=== PATIENT | female | born 1995 | race Caucasian/White ===

== ENCOUNTER 2020-10-10 | Outpatient (REF) | payer OTHER, MEDICAID, SELFPAY ==
[2020-10-11 15:05] LABS: CT PCR NOT DETECTED (Not Detect.); NG PCR NOT DETECTED (Not Detect.)
[2020-10-12 09:13] LABS: BV Int Neg Control Negative (Negative); BV Int Pos Control Positive (Positive)
== END 2020-10-10 00:01 | disposition home or self-care (01) ==
LOC: HO.LNP
PROVIDERS: Visit Provider Nurse Practitioner Family
DX: Z11.3 Encounter for screening for infections with a predominantly sexual mode of transmission (principal)
CPT/HCPCS: 87480; 87491; 87510; 87591; 87660

== ENCOUNTER 2020-10-11 12:55 | Outpatient (REF) | payer OTHER, SELFPAY | END 2020-10-11 12:56 | disposition home or self-care (01) | LOC: HO.LNP 12:55 | PROVIDERS: Visit Provider Nurse Practitioner Family | DX: Z13.89 Encounter for screening for other disorder (principal) ==

== ENCOUNTER 2020-10-16 11:25 | Outpatient (REF) | payer OTHER, MEDICAID, SELFPAY | END 2020-10-16 11:26 | disposition home or self-care (01) | LOC: HO.LNP 11:25 | PROVIDERS: Visit Provider Nurse Practitioner Family | DX: N39.0 Urinary tract infection, site not specified (principal) | CPT/HCPCS: 87086 ==

== ENCOUNTER 2021-03-29 09:05 | Outpatient (REF) | payer OTHER, MEDICAID, SELFPAY ==
[2021-03-29 11:31] LABS: MANUAL DIFF FLAG NO
[2021-03-29 11:38] LABS: Basophils Percent Auto 0.6 % (0-2); Eosinophils Absolute Auto 0.3 X10*3/uL (0.0-0.4); Hematocrit 38.9 % (37-47); Hemoglobin 13.5 g/dl (12.0-16.0); Imm Gran Abs Auto 0.01 X10*3/uL (0.00-0.03); Imm Gran Pct Auto 0.2 % (0.0-0.4); Lymphocytes Absolute Auto 2.3 X10*3/uL (1.2-4.9); Lymphocytes Percent Auto 46.5 % (20-40); Mean Corpuscular HGB Conc 34.7 g/dl (31.0-35.0); Mean Corpuscular Hemoglobin 29.7 pg (27.0-33.0); Mean Corpuscular Volume 85.7 fL (80-98); Mean Platelet Volume 9.9 fL (9.4-12.3); Monocytes Absolute Auto 0.5 X10*3/uL (0.1-1.2); Monocytes Percent Auto 9.1 % (2-11); Neutrophils Absolute Auto 1.9 X10*3/uL (2.0-8.3); Neutrophils Percent Auto 37.6 % (45-73); Platelet Count 263 X10*3/uL (160-400); Red Blood Count 4.54 X10*6/uL (4.20-5.50)
[2021-03-29 12:19] LABS: Alanine Aminotransferase 11 U/L (0-31); Albumin Level 4.2 g/dL (3.5-5.0); Alkaline Phosphatase 52 U/L (39-117); Anion Gap 12 (12-20); Aspartate Amino Transferase 15 U/L (5-31); Bilirubin Total 0.3 mg/dL (0.0-1.0); Blood Urea Nitrogen 11 mg/dL (9-16); Calcium 9.8 mg/dL (8.4-10.2); Carbon Dioxide 26 mmol/L (22-29); Chloride 105 mmol/L (96-108); Cholesterol 161 mg/dL; Estimated Glomerular Filt Rate > 60; Glucose Fasting 90 mg/dL (60-99); HDL Cholesterol 48 mg/dL; LDL Cholesterol Calculated 92 mg/dl; Potassium 4.5 mmol/L (3.3-5.1); Sodium 138 mmol/L (135-145); Total Protein 7.3 g/dL (6.5-8.0); Triglycerides 106 mg/dL
[2021-03-29 12:21] LABS: TSH reflex Free T4 0.94 uIU/mL (0.32-4.0)
== END 2021-03-29 09:06 | disposition home or self-care (01) ==
LOC: HO.HMGCLDS 09:05
PROVIDERS: PCP Internal Medicine; Visit Provider Internal Medicine
DX: E78.9 Disorder of lipoprotein metabolism, unspecified (principal); R41.840 Attention and concentration deficit; R53.83 Other fatigue; Z83.49 Family history of other endocrine, nutritional and metabolic diseases
CPT/HCPCS: 36415; 80053; 80061; 84443; 85025

== ENCOUNTER 2021-07-09 13:11 | Outpatient (REF) | payer OTHER, MEDICAID, SELFPAY ==
[2021-07-11 19:31] LABS: TS Negative Control Passed; TS Panel A 0; TS Panel B 0; TS Positive Control Passed; TSpotTB Negative (Negative)
== END 2021-07-09 13:12 | disposition home or self-care (01) ==
LOC: HO.HMGCLDS 13:11
PROVIDERS: PCP Internal Medicine; Visit Provider Internal Medicine
DX: Z11.1 Encounter for screening for respiratory tuberculosis (principal)
CPT/HCPCS: 36415; 86481

== ENCOUNTER 2021-10-03 10:15 | Outpatient (REF) | payer OTHER, MEDICAID, SELFPAY ==
[2021-10-04 00:44] LABS: CT PCR NOT DETECTED (Not Detect.); NG PCR NOT DETECTED (Not Detect.)
== END 2021-10-03 10:16 | disposition home or self-care (01) ==
LOC: HO.LAB 10:15
PROVIDERS: PCP Internal Medicine; Visit Provider Advanced Practice Midwife
DX: Z01.419 Encounter for gynecological examination (general) (routine) without abnormal findings (principal); Z20.2 Contact with and (suspected) exposure to infections with a predominantly sexual mode of transmission; R55 Syncope and collapse
CPT/HCPCS: 87491; 87591; 88142

== ENCOUNTER 2022-12-03 13:29 | Outpatient (REF) | payer OTHER, SELFPAY ==
[2022-12-03 14:51] LABS: HCG Quantitative 27 mIU/mL
== END 2022-12-03 13:30 | disposition home or self-care (01) ==
LOC: HO.HMGCLDS 13:29
PROVIDERS: PCP Internal Medicine; Visit Provider Internal Medicine
DX: N92.6 Irregular menstruation, unspecified (principal)
CPT/HCPCS: 36415; 84702

== ENCOUNTER 2023-01-02 07:13 | Outpatient (REF) | payer OTHER, SELFPAY ==
[2023-01-02 11:39] LABS: MANUAL DIFF FLAG NO
[2023-01-02 12:03] LABS: Basophils Percent Auto 0.6 % (0-2); Eosinophils Absolute Auto 0.2 X10*3/uL (0.0-0.4); Eosinophils Percent Auto 4.6 % (0-4); Hematocrit 36.9 % (37.0-47.0); Hemoglobin 12.2 g/dl (12.0-16.0); Imm Gran Abs Auto 0.01 X10*3/uL (0.00-0.03); Imm Gran Pct Auto 0.2 % (0.0-0.4); Lymphocytes Absolute Auto 1.6 X10*3/uL (1.2-4.9); Lymphocytes Percent Auto 32.7 % (20-40); Mean Corpuscular HGB Conc 33.1 g/dl (31.0-35.0); Mean Corpuscular Hemoglobin 29.4 pg (27.0-33.0); Mean Corpuscular Volume 88.9 fL (80.0-98.0); Mean Platelet Volume 9.4 fL (9.4-12.3); Monocytes Absolute Auto 0.5 X10*3/uL (0.1-1.2); Monocytes Percent Auto 11.2 % (2-11); Neutrophils Absolute Auto 2.5 x10*3/uL (2.0-8.3); Neutrophils Percent Auto 50.7 % (45-73); Platelet Count 256 X10*3/uL (160-400); Red Blood Count 4.15 X10*6/uL (4.20-5.50); Red Cell Distribution Width 12.4 % (11.0-16.0); White Blood Count 4.8 X10*3/uL (4.8-10.8)
[2023-01-02 12:20] LABS: Alanine Aminotransferase 23 U/L (0-31); Albumin Level 4.2 g/dL (3.5-5.0); Alkaline Phosphatase 59 U/L (39-117); Anion Gap 9 (12-20); Aspartate Amino Transferase 19 U/L (5-31); Bilirubin Total 0.3 mg/dL (0.0-1.0); Blood Urea Nitrogen 10 mg/dL (9-16); Carbon Dioxide 27 mmol/L (22-29); Chloride 105 mmol/L (96-108); Cholesterol 148 mg/dL; Estimated Glomerular Filt Rate > 60; Glucose Fasting 96 mg/dL (60-99); HDL Cholesterol 50 mg/dL; LDL Cholesterol Calculated 86 mg/dl; Potassium 4.2 mmol/L (3.3-5.1); Sodium 137 mmol/L (135-145); Total Protein 6.7 g/dL (6.5-8.0); Triglycerides 60 mg/dL
[2023-01-02 12:44] LABS: HCG Quantitative 2733 mIU/mL; TSH reflex Free T4 1.51 uIU/mL (0.32-4.0)
== END 2023-01-02 07:14 | disposition home or self-care (01) ==
LOC: HO.HMGCLDS 07:13
PROVIDERS: PCP Internal Medicine; Visit Provider Internal Medicine
DX: Z00.01 Encounter for general adult medical examination with abnormal findings (principal); E78.9 Disorder of lipoprotein metabolism, unspecified; F42.9 Obsessive-compulsive disorder, unspecified; T78.40XA Allergy, unspecified, initial encounter; N92.6 Irregular menstruation, unspecified; Z83.49 Family history of other endocrine, nutritional and metabolic diseases
CPT/HCPCS: 36415; 80053; 80061; 84443; 84702; 85025

== ENCOUNTER 2023-10-09 14:25 | Outpatient (AMB) | payer OTHER, SELFPAY ==
--- NOTE | 2023-10-09 14:29 | AM.OFFWIN_ITS ---
Intake Vital Signs 10/09/23 14:30 Height 5 ft 2 in Weight 160 lb 8 oz BMI 29.4 BP 110/70 Blood Pressure Location Rt brachial Position Sitting Pulse 96 Pulse Source Pulse Oximeter Pulse Oximetry (%) 98 Oxygen Delivery Method Room Air Intake Visit Reasons: EST/spot on stomach(lobby) Intake Note: Pt is here requesting control until she is able to receive a referral to OBGYN. Pt has PCP appointment on 11/03/23. Pt also has c/o red spot located on her stomach that may have been from tanning. Patient Tobacco Use Status: Never used Tobacco Allergies seasonal allergies/pollen Allergy (Unknown, Uncoded 10/09/23 14:33) Unknown HPI HPI Comments History of Present Illness Details 28 y/o female who presents to walk in [facility] for contraception. She is sexually active with a new partner, no condoms. LMP: 09/18 - 09/22, regular. Last unprotected intercourse 09/23/2023. She was previously on Stacie 3 years ago, with no problems. Denies any h/o heart, liver, kidney disease. Denies any [employer] [place] cancers. Denies h/o headaches with Aura. [facility] Medical History Allergies Anxiety Lipid disorder Migraine headache without aura Vasovagal reaction Vasovagal syncope Surgical History History of tonsillectomy History of tooth extraction Family History Father No problems noted. Mother No problems noted. Maternal Grandmother No problems noted. Maternal Grandfather History of heart attack Paternal Grandfather No problems noted. Paternal Grandmother No problems noted. Brother No problems noted. Sister No problems noted. 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 Sexual orientation: Straight/Heterosexual Gender identity: Female Cognitive needs: No Hearing needs: No Vision needs: No Review of Systems Const All systems reviewed & are unremarkable except as noted in HPI and below Physical Exam Vital Signs: Last Vital Signs Pulse 96 10/09/23 14:30 BP 110/70 10/09/23 14:30 Pulse Ox 98 10/09/23 14:30 Oxygen Delivery Method Room Air 10/09/23 14:30 BMI result Body Mass Index 29.4 Const General: comfortable Orientation/consciousness: patient oriented x3 Resp Effort & Inspection: normal respiratory effort Auscultation: clear to auscultation bilaterally Cardio Rate: regular rate Rhythm: regular rhythm Neuro General: patient oriented x3 Psych Appearance: grossly normal Mental Status: mental status grossly normal Speech and movement: Clear speech present Affect: normal affect Attitude: cooperative Thought process: Normal thought process present Results AMB Test Urine AMB Test Urine Negative Last Edit by Bree King CMA on 10/09 15:13 Results Reviewed Results Reviewed: Laboratory Last Values [facility]st Clinic Negative 10/09/23 15:11 Assessment & Plan Assessment & Plan (1) control counseling: Code(s): Z30.09 - Encounter for other general counseling and advice on contraception Plan: - Extensive consel provided - Educated on redflags signs and common side effects - Provided information on start - POC HCG Urine today (negative) - Will start Stacie today; advised her to skip placebo pills to avoid Estrogen drop. - She will need to f/u with PCP for refills. Plan No contraindications at this time. Orders: Orders AMB HCG Urine Test Today Z32.02 - Encounter for test, result negative Medications: New drospirenone-ethinyl estradiol 3-0.03 mg (Stacie (28)) Day 1 start: Dose starts on first day of menstrual cycle. An additional method of contraception is not required. Quick start: Start on the day the patient receives the prescription. Use an additional method of contraception until 7 days of consecutive administration. 1 tab PO DAILY 84 tabs 0RF Z30.09 - Encounter for other general counseling and advice on contraception Coding Level of Care Code Est Pt Level 3 (02099) Diagnoses control counseling Z30.09 Time Spent (min) 15
[2023-10-09 14:30] VITALS: BP 110/70; PULSE 96; O2SAT 98; BMI 29.4
== END 2023-10-09 16:12 | disposition home or self-care (01) ==
PROVIDERS: PCP Internal Medicine; Visit Provider Nurse Practitioner Family
DX: Z30.09 Encounter for other general counseling and advice on contraception (principal); Z32.02 Encounter for pregnancy test, result negative
CPT/HCPCS: 81025; 99213

== ENCOUNTER 2024-02-23 11:03 | Outpatient (AMB) | payer OTHER, SELFPAY ==
[2024-02-23 11:06] VITALS: BP 140/78; PULSE 112; TEMP 36.6; O2SAT 98
--- NOTE | 2024-02-23 11:06 | MHC.PC.OV ---
Vital Signs 02/23/24 11:06 Height 5 ft 2 in Weight 164 lb BMI 30.0 BP 140/78 H Blood Pressure Location Rt brachial Position Sitting Pulse 112 H Pulse Source Pulse Oximeter Temp 97.9 F Temp Source Oral Pulse Oximetry (%) 98 Oxygen Delivery Method Room Air Intake Visit Reasons: Annual PE Allergies seasonal allergies/pollen Allergy (Unknown, Uncoded 10/09/23 14:33) Unknown Medication List - Last Reconciled 02/23/24 by Steph Treviño MD atorvastatin (Lipitor) 10 mg PO DAILY 90 days drospirenone-ethinyl estradiol 3-0.03 mg (Stacie (28)) 1 tab PO DAILY escitalopram oxalate (Lexapro) 10 mg PO DAILY 90 days meclizine 25 mg PO BID-TID PRN 7 days ondansetron HCl 4 mg PO Q8H PRN 7 days Tobacco use date assessed: 02/23/24 Dental Screening Dental Screen Date: 02/23/24 Did you have a dental visit in the last 12 months?: Yes Did you have a dental problem in the last 6 months where you did not have access to dental care?: No Was dental information given to patient?: Patient has dentist HPI Annual PE HPI Details Patient is 29-year-old female came in today for sick visit She was originally scheduled for physical examination which we need to cancel, we gave her a new appointment for of this month for physical exam She is feeling sick since yesterday with sore throat which has gotten worse this morning Patient is having difficulty swallowing because of pain Feeling tired On examination she has pharyngitis with tonsillar erythema both sides We have taken strep test as well as COVID test Meanwhile I have sent amoxicillin for her to be started Patient was also instructed to package pick up Chloraseptic throat spray which will help with the pain She may also take ibuprofen or Tylenol. Push fluids Further management after the reports [facility] Medical History Vasovagal syncope Anxiety Vasovagal reaction Migraine headache without aura Allergies Lipid disorder Surgical History History of tooth extraction History of tonsillectomy Family History Father No problems noted. Mother No problems noted. Maternal Grandmother No problems noted. Maternal Grandfather History of heart attack Paternal Grandfather No problems noted. Paternal Grandmother No problems noted. Brother No problems noted. Sister No problems noted. 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 Lebron Beltran, Rupali Gonzalez, Oscar Dean and colleagues, with an educational daily from [employer]. Review of Systems Const Denies chills and Denies fever(s) ENT Denies epistaxis Card Denies chest pain Resp Denies chest congestion, Denies cough and Denies hemoptysis GI Denies diarrhea and Denies nausea Skin/Breast Denies rash Neuro Reports no additional complaints Psych Reports no additional complaints Endo Reports no additional complaints Physical exam (Primary Care) Vital Signs: Last Vital Signs Temp 97.9 F 02/23/24 11:06 Pulse 112 H 02/23/24 11:06 BP 140/78 H 02/23/24 11:06 Pulse Ox 98 02/23/24 11:06 Oxygen Delivery Method Room Air 02/23/24 11:06 BMI result Body Mass Index 30.0 Tobacco/Smoking Status: Tobacco use Status Tobacco use date assessed 02/23/24 02/23/24 11:08 Patient Tobacco Use Status Never used Tobacco 02/23/24 11:08 e-Cigarette/Vaping Use Never Used 02/23/24 11:08 Thrive Assessment: Date of Thrive Assessment Date Thrive assessed 10/28/22 02/23/24 11:08 Const General: cooperative, comfortable and no acute distress Orientation/consciousness: patient oriented x3 HENMT Head: Yes normocephalic Eyes General: appearance normal, both eyes and all related structures Neck Neck: Yes supple Resp Effort & Inspection: normal respiratory effort, no cough and no stridor Skin General skin exam: turgor normal Neuro General: patient oriented x3, tone normal and moves all extremities Extrem Right lower extremity: no edema Left lower extremity: no edema Assessment and Plan Assessment & Plan (1) Throat pain in adult: Code(s): R07.0 - Pain in throat (2) Difficulty swallowing: Code(s): R13.10 - Dysphagia, unspecified Qualifiers: Dysphagia type: oral phase Qualified Code(s): R13.11 - Dysphagia, oral phase (3) Nasal discharge: Code(s): J34.89 - Other specified disorders of nose and nasal sinuses (4) Feeling sick: Code(s): R68.89 - Other general symptoms and signs Plan Patient is 29-year-old female came in today for sick visit She was originally scheduled for physical examination which we need to cancel, we gave her a new appointment for of this month for physical exam She is feeling sick since yesterday with sore throat which has gotten worse this morning Patient is having difficulty swallowing because of pain Feeling tired On examination she has pharyngitis with tonsillar erythema both sides We have taken strep test as well as COVID test Meanwhile I have sent amoxicillin for her to be started Patient was also instructed to package pick up Chloraseptic throat spray which will help with the pain She may also take ibuprofen or Tylenol. Push fluids Further management after the reports Orders: Orders SARS-CoV2/FLU/RSV Today R09.89 - Other specified symptoms and signs involving the circulatory and respiratory systems Medications: New amoxicillin 875 mg PO BID 14 tabs 0RF 7 days Coding Level of Care Code Est Pt Level 3 (48670) Diagnoses Throat pain in adult R07.0 Oral phase dysphagia R13.11 Dysphagia type: oral phase Nasal discharge J34.89 Feeling sick R68.89
== END 2024-02-23 12:47 | disposition home or self-care (01) ==
PROVIDERS: PCP Internal Medicine; Visit Provider Internal Medicine
DX: R07.0 Pain in throat (principal); R13.11 Dysphagia, oral phase; J34.89 Other specified disorders of nose and nasal sinuses; R68.89 Other general symptoms and signs
CPT/HCPCS: 87880; 99213

== ENCOUNTER 2024-02-23 13:03 | Outpatient (REF) | payer OTHER, SELFPAY ==
[2024-02-23 14:08] LABS: Influenza A PCR NEGATIVE (Negative); Influenza B PCR NEGATIVE (Negative); Resp Syncy Virus RNA Qual PCR NEGATIVE (Negative); SARS COV2 PCR INHOUSE NEGATIVE (Negative)
== END 2024-02-23 13:04 | disposition home or self-care (01) ==
LOC: HO.LNP 13:03
PROVIDERS: Visit Provider Internal Medicine
DX: R09.89 Other specified symptoms and signs involving the circulatory and respiratory systems (principal)
CPT/HCPCS: 0241U

== ENCOUNTER 2024-03-04 07:57 | Outpatient (AMB) | payer OTHER, SELFPAY ==
[2024-03-04 08:03] VITALS: BP 128/82; PULSE 95; O2SAT 97; BMI 30.2
--- NOTE | 2024-03-04 08:03 | A.OFFPC_ITS ---
Vital Signs 3 03/04/24 08:03 Height 5 ft 2 in Weight 165 lb BMI 30.2 BP 128/82 Blood Pressure Location Rt brachial Position Sitting Pulse 95 Pulse Source Pulse Oximeter Pulse Oximetry (%) 97 Oxygen Delivery Method Room Air Intake Visit Reasons: Annual PE Allergies seasonal allergies/pollen Allergy (Unknown, Uncoded 03/04/24 08:03) Unknown Medication List - Last Reconciled 03/04/24 by Steph Treviño MD atorvastatin (Lipitor) 10 mg PO DAILY 90 days escitalopram oxalate (Lexapro) 10 mg PO DAILY 90 days meclizine 25 mg PO BID-TID PRN 7 days ondansetron HCl 4 mg PO Q8H PRN 7 days Tobacco use date assessed: 03/04/24 Dental Screening Dental Screen Date: 02/23/24 Did you have a dental visit in the last 12 months?: Yes Did you have a dental problem in the last 6 months where you did not have access to dental care?: No Was dental information given to patient?: Patient has dentist HPI Annual PE 2 HPI0 Details Patient is 29-year-old female came in today for physical exam Patient does not want to see OBGYN Last time she went to OBGYN she passed out while having Pap smear. Patient suffers from anxiety/OCD, currently taking Lexapro only as needed, instructed patient to start taking it daily. Lipid disorder: Continue atorvastatin, due for labs Patient would also like to have referral to Dermatology for cyst on her scalp and right abdomen. She will return in 6 months for follow-up on anxiety and lipids And 1 year for physical exam BMI is elevated need to lose weight PFSH Medical History Vasovagal syncope Anxiety Vasovagal reaction Migraine headache without aura Allergies Lipid disorder Surgical History History of tooth extraction History of tonsillectomy Family History Father No problems noted. Mother No problems noted. Maternal Grandmother No problems noted. Maternal Grandfather History of heart attack Paternal Grandfather No problems noted. Paternal Grandmother No problems noted. Brother No problems noted. Sister No problems noted. 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 1. Little interest or pleasure in doing things: not at all 2. Feeling down, depressed, or hopeless: not at all 3. Trouble falling or staying asleep, or sleeping too much: not at all 4. Feeling tired or having little energy: not at all 5. Poor appetite or overeating: not at all 6. Feeling bad about yourself - or that you are a failure or have let yourself or your family down: not at all 7. Trouble concentrating on things, such as reading the newspaper or watching television: not at all 8. Moving or speaking so slowly that other people could have noticed. Or the opposite - being so fidgety or restless that you have been moving around a lot more than usual: not at all 9. Thoughts that you would be better off or of hurting yourself in some way: not at all Total score: 0 Depression Screening Interpretation: Negative Depression Screening Done: Yes 85912 - PHQ-9 Billing: Yes Source: Developed by Drs. Lebron Beltran, Rupali Gonzalez, Oscar Dean and colleagues, with an educational daily from [employer]. Thrive Questionnaire Date Thrive assessed: 03/04/24 I am a: Patient What is your living situation today?: I have a steady place to live Within the past 12 months, did the food you bought not last and you didn't have the money to get more?: Never true Within the past 12 months, did you worry whether your food would run out before you got money to buy more?: Never true Do you have trouble paying for medicines?: No Do you have trouble getting transportation to medical appointments?: No Do you have trouble paying your heating and electricity bill?: No Do you have trouble taking care of your child, family member or friend?: No Do you have trouble with day-to-day activities such as bathing, preparing meals, shopping, managing finances, etc.?: No Are you currently unemployed and looking for a job?: No Are you interested in more education?: No THRIVE Score: 0 AUDIT C Alcohol Use Questionnaire (AUDIT-C) 1. How often do you have a drink containing alcohol?: Monthly or less 2. How many drinks containing alcohol do you have on a typical day when you are drinking?: 1 or 2 3. How often do you have six or more drinks on one occasion?: Never Total Score: 1 ROSALIA-7 AMB Questionnaire ROSALIA-7 Date ROSALIA - 7 assessed: 03/04/24 Feeling nervous, anxious, or on edge: 0 = Not at all Not being able to stop or control worryin = Not at all Worrying too much about different things: 1 = Several days Trouble relaxin = Several days Being so restless that it is hard to sit still: 0 = Not at all Becoming easily annoyed or irritable: 0 = Not at all Feeling afraid as if something awful might happen: 0 = Not at all Total ROSALIA-7 score (0-4 normal; 5-9 mild; 10-14 moderate; 15-21 severe): 2 Source: Developed by Drs. Lebron Beltran, Rupali Gonzalez, Oscar Dean and colleagues, with an educational daily from [employer]. Review of Systems Const Denies chills, Denies fever(s) and Denies headache(s) Eyes Denies blurry vision ENT Denies headache(s), Denies nasal discharge, Denies nasal obstruction, Denies odynophagia and Denies sinus pain Card Denies chest pain at rest and Denies chest pain with activity Resp Denies cough and Denies hemoptysis GI Denies diarrhea, Denies odynophagia, Denies vomiting and Denies hematemesis Reports as per HPI Musc Denies abnormal gait Skin/Breast Reports as per HPI Neuro Denies Neuro-related abnormal movements, Denies Abnormal speech present, Denies abnormal gait, Denies headache(s) and Denies Sensory deficit (Neuro) Psych Denies mood swings and Denies paranoia Endo Reports as per HPI Eliseo/Lymph Reports as per HPI Aller/Immun Reports as per HPI Physical exam (Primary Care) Vital Signs: Last Vital Signs Pulse 95 03/04/24 08:03 BP 128/82 03/04/24 08:03 Pulse Ox 97 03/04/24 08:03 Oxygen Delivery Method Room Air 03/04/24 08:03 BMI result Body Mass Index 30.2 Tobacco/Smoking Status: Tobacco use Status Tobacco use date assessed 03/04/24 03/04/24 08:07 Patient Tobacco Use Status Never used Tobacco 03/04/24 08:07 e-Cigarette/Vaping Use Never Used 03/04/24 08:07 PHQ-9: PHQ-9 Score PHQ-9: Total score 0 03/04/24 08:42 Depression Screening Interpretation: Negative Thrive Assessment: Date of Thrive Assessment Date Thrive assessed 03/04/24 03/04/24 08:09 Const General: cooperative, comfortable and no acute distress Orientation/consciousness: patient oriented x3 HENMT Head: Yes normocephalic and Yes atraumatic Head images: 2 1. Pea size small firm cyst Eyes General: appearance normal, both eyes and all related structures Pupils: Equal, round and reactive pupils present EOM: EOMs intact bilaterally Neck Neck: Yes supple and No lymphadenopathy Thyroid: Thyroid normal Lymphatic: no lymphadenopathy noted Resp Effort & Inspection: normal respiratory effort and able to speak in complete sentences Auscultation: clear to auscultation bilaterally Cardio Heart sounds: S1 normal heart sound present and S2 normal heart sound present GI Palpation (GI): Soft to palpation and nontender Auscultation: normal bowel sounds General: Yes no CVA tenderness Back/Spine/Pelvis Back: no CVA tenderness Skin General skin exam: elasticity normal and turgor normal Full body images: 2 1. pea size small fibroma Neuro General: patient oriented x3 and gait normal Cranial nerves: Yes Equal, round and reactive pupils present Speech: No Abnormal speech present Sensory Exam: No Sensory deficit (Neuro) Coordination: tandem gait normal and Romberg test negative Extrem General: Yes normal exam except as noted and No edema Immunizations Boostrix Tdap 2.5 Lf unit-8 mcg-5 Lf/0.5 mL intramuscular syringe Performing Provider: Steph Treviño MD Performing Location: [facility] Administered by: SHELLI Parra on 03/04/24 08:27 2 Dose Route Admin Location Dispensed Lot Number Expiration Date NDC Hydrologic Modeler 0.5 mL IM Right Deltoid 0.5 mL [id number] 03/09/26 [id number] [employer] 2 VIS Given Date VIS Provided VIS Publication Date 03/04/24 Single Vaccine 21 Eligibility Eligibility Date Funding Source Not [facility] Eligible 03/04/24 Private Assessment and Plan Assessment & Plan (1) Encounter for general adult medical examination with abnormal findings: Code(s): Z00.01 - Encounter for general adult medical examination with abnormal findings (2) Lipid disorder: Code(s): E78.9 - Disorder of lipoprotein metabolism, unspecified (3) OCD (obsessive compulsive disorder): Code(s): F42.9 - Obsessive-compulsive disorder, unspecified Qualifiers: Obsessive-compulsive disorder type: unspecified Qualified Code(s): F 42.9 - Obsessive-compulsive disorder, unspecified (4) Anxiety disorder: Code(s): F41.9 - Anxiety disorder, unspecified Qualifiers: Anxiety disorder type: generalized anxiety disorder Qualified Code(s): F41.1 - Generalized anxiety disorder (5) Abnormal skin growth: Code(s): D49.2 - Neoplasm of unspecified behavior of bone, soft tissue, and skin Plan Patient is 29-year-old female came in today for physical exam Patient does not want to see OBGYN Last time she went to OBGYN she passed out while having Pap smear. Patient suffers from anxiety/OCD, currently taking Lexapro only as needed, instructed patient to start taking it daily. Lipid disorder: Continue atorvastatin, due for labs Patient would also like to have referral to Dermatology for cyst on her scalp and right abdomen. She will return in 6 months for follow-up on anxiety and lipids And 1 year for physical exam BMI is elevated need to lose weight Orders: Orders 2 Lipid Panel Today E78.9 - Disorder of lipoprotein metabolism, unspecified, F41.9 - Anxiety disorder, unspecified, F42.9 - Obsessive-compulsive disorder, unspecified, T78.40XA - Allergy, unspecified, initial encounter, Z00.01 - Encounter for general adult medical examination with abnormal findings Complete Blood Count Auto Diff Today E78.9 - Disorder of lipoprotein metabolism, unspecified, F41.9 - Anxiety disorder, unspecified, F42.9 - Obsessive-compulsive disorder, unspecified, T78.40XA - Allergy, unspecified, initial encounter, Z00.01 - Encounter for general adult medical examination with abnormal findings Comprehensive [place]. Panel Fast Today E78.9 - Disorder of lipoprotein metabolism, unspecified, F41.9 - Anxiety disorder, unspecified, F42.9 - Obsessive-compulsive disorder, unspecified, T78.40XA - Allergy, unspecified, initial encounter, Z00.01 - Encounter for general adult medical examination with abnormal findings Vitamin D 25-OH (D2 and D3) Today E78.9 - Disorder of lipoprotein metabolism, unspecified, F41.9 - Anxiety disorder, unspecified, F42.9 - Obsessive-compulsive disorder, unspecified, T78.40XA - Allergy, unspecified, initial encounter, Z00.01 - Encounter for general adult medical examination with abnormal findings TSH reflex Free T4 Today E78.9 - Disorder of lipoprotein metabolism, unspecified, F41.9 - Anxiety disorder, unspecified, F42.9 - Obsessive-compulsive disorder, unspecified, T78.40XA - Allergy, unspecified, initial encounter, Z00.01 - Encounter for general adult medical examination with abnormal findings TDaP Immunization Today Z23 - Encounter for immunization Referrals 2 Dermatology Referral D49.2 - Neoplasm of unspecified behavior of bone, soft tissue, and skin Medications: Refilled 2 atorvastatin (Lipitor) 10 mg PO DAILY 90 days 90 tabs 1RF E78.9 - Disorder of lipoprotein metabolism, unspecified escitalopram oxalate (Lexapro) 10 mg PO DAILY 90 days 90 tabs 0RF Discontinued 2 meclizine Discontinued Reason: Doctor's Order 25 mg PO BID-TID 7 days PRN 20 tabs 0RF motion sickness ondansetron HCl Discontinued Reason: Doctor's Order 4 mg PO Q8H 7 days PRN 14 tabs 0RF nausea and vomiting R11.0 - Nausea Coding Level of Care Code Est Pt Level 3 (51814) Est Pt Prev Care 18-39y(65159) Diagnoses Encounter for general adult medical examination with abnormal findings Z00.01 Lipid disorder E78.9 Obsessive-compulsive disorder, unspecified type F42.9 Obsessive-compulsive disorder type: unspecified Generalized anxiety disorder F41.1 Anxiety disorder type: generalized anxiety disorder Abnormal skin growth D49.2
== END 2024-03-04 13:01 | disposition home or self-care (01) ==
LOC: HO.HMGC 07:57
PROVIDERS: PCP Internal Medicine; Visit Provider Internal Medicine
DX: Z00.00 Encounter for general adult medical examination without abnormal findings (principal); E78.9 Disorder of lipoprotein metabolism, unspecified; F42.9 Obsessive-compulsive disorder, unspecified; Z23 Encounter for immunization; F41.1 Generalized anxiety disorder; D49.2 Neoplasm of unspecified behavior of bone, soft tissue, and skin
CPT/HCPCS: 90471; 90715; 99395

== ENCOUNTER 2024-03-04 08:26 | Outpatient (REF) | payer OTHER, SELFPAY ==
[2024-03-04 11:21] LABS: MANUAL DIFF FLAG NO
[2024-03-04 11:29] LABS: Basophils Absolute Auto 0.1 X10*3/uL (0.0-0.2); Basophils Percent Auto 0.6 % (0-2); Eosinophils Absolute Auto 0.4 X10*3/uL (0.0-0.4); Eosinophils Percent Auto 4.6 % (0-4); Hematocrit 39.1 % (37.0-47.0); Imm Gran Abs Auto 0.04 X10*3/uL (0.00-0.03); Imm Gran Pct Auto 0.5 % (0.0-0.4); Lymphocytes Absolute Auto 2.7 X10*3/uL (1.2-4.9); Lymphocytes Percent Auto 31.2 % (20-40); Mean Corpuscular HGB Conc 33.2 g/dl (31.0-35.0); Mean Corpuscular Hemoglobin 28.4 pg (27.0-33.0); Mean Corpuscular Volume 85.6 fL (80.0-98.0); Mean Platelet Volume 9.4 fL (9.4-12.3); Monocytes Absolute Auto 0.5 X10*3/uL (0.1-1.2); Monocytes Percent Auto 5.7 % (2-11); Neutrophils Percent Auto 57.4 % (45-73); Platelet Count 333 X10*3/uL (160-400); Red Blood Count 4.57 X10*6/uL (4.20-5.50); Red Cell Distribution Width 13.1 % (11.0-16.0); White Blood Count 8.7 X10*3/uL (4.8-10.8)
[2024-03-04 11:59] LABS: Alanine Aminotransferase 23 U/L (0-31); Albumin Level 4.2 g/dL (3.5-5.0); Alkaline Phosphatase 74 U/L (39-117); Anion Gap 11 (12-20); Aspartate Amino Transferase 24 U/L (5-31); Bilirubin Total 0.1 mg/dL (0.0-1.0); Blood Urea Nitrogen 9 mg/dL (9-16); Calcium 9.4 mg/dL (8.4-10.2); Carbon Dioxide 29 mmol/L (22-29); Chloride 103 mmol/L (96-108); Cholesterol 142 mg/dL (<200); Estimated Glomerular Filt Rate > 60; Glucose Fasting 84 mg/dL (60-99); HDL Cholesterol 34 mg/dL (>40); LDL Cholesterol Calculated 86 mg/dL (<100); Sodium 139 mmol/L (135-145); TSH reflex Free T4 1.39 uIU/mL (0.32-4.0); Total Protein 8.2 g/dL (6.5-8.0); Triglycerides 114 mg/dL (<150)
[2024-03-10 14:58] LABS: Vitamin D 25-OH, D2 <4 ng/mL; Vitamin D 25-OH, D3 49 ng/mL; Vitamin D 25-OH, Total 49 ng/mL (30-100)
== END 2024-03-04 08:27 | disposition home or self-care (01) ==
LOC: HO.HMGCLDS 08:26
PROVIDERS: PCP Internal Medicine; Visit Provider Internal Medicine
DX: Z00.01 Encounter for general adult medical examination with abnormal findings (principal); E78.9 Disorder of lipoprotein metabolism, unspecified; T78.40XA Allergy, unspecified, initial encounter; F42.9 Obsessive-compulsive disorder, unspecified; F41.9 Anxiety disorder, unspecified
CPT/HCPCS: 36415; 80053; 80061; 82306; 84443; 85025

== ENCOUNTER 2024-11-14 08:00 | Outpatient (AMB) | payer OTHER, SELFPAY ==
--- NOTE | 2024-11-14 08:02 | AM.OFFWIN_ITS ---
Intake Vital Signs 11/14/24 08:03 Weight 165 lb BP 122/80 Blood Pressure Location Rt brachial Position Sitting Pulse 79 Pulse Source Pulse Oximeter Pulse Oximetry (%) 98 Oxygen Delivery Method Room Air Intake Visit Reasons: EP Rash behind thighs Intake Note: Patient here for rash behind bilat knees, thighs that has been present for a couple of days. Patient Tobacco Use Status: Never used Tobacco Allergies seasonal allergies/pollen Allergy (Unknown, Uncoded 11/14/24 08:04) Unknown Do you need a note to return to daycare/school/sports/work: No HPI HPI Comments History of Present Illness Details History of Present Illness - The patient is a 29-year-old female pr esenting with a rash with itching and spreading on thighs and hips. - Rash noted between the thighs and sign s of spreading, with increased itching noted if hydrocortisone cream is not used. - Subjective history is pertinent for at least one week of symptoms, characterized by the rash extending to the hips. - Hydrocortisone has been used, effectiv e in stopping itching. - Absence of any new lotions, detergents , clothing, medications, or foods recently introduced. - Possible exposure source includes a ta nning bed at the gym, where the rash started post-use. - Previously encountered a similar derma titis triggered by a belt buckle during high school years. Physical Exam General: Cooperative, healthy appearing, comfortable, no acute distress and well developed Orientation: Patient oriented x3 Limitations: No limitations Head: Normal to inspection Ears: Hearing grossly normal bilaterally Nose: Normal external nose present Face and sinus: Normal facial exam Eyes: Appearance normal, both eyes and all related structures Neck: Normal visual inspection and Yes full ROM Respiratory: Normal respiratory effort and able to speak in complete sentences. Skin: fulminant papular rash with erythema on bilateral thighs, posterior knees and bilateral hips Neuro: Patient oriented x3 Extremities: Normal to inspection FORMERLY [facility], [facility] Medical History Vasovagal syncope Anxiety Vasovagal reaction Migraine headache without aura Allergies Lipid disorder Surgical History History of tooth extraction History of tonsillectomy Family History Father No problems noted. Mother No problems noted. Maternal Grandmother No problems noted. Maternal Grandfather History of heart attack Paternal Grandfather No problems noted. Paternal Grandmother No problems noted. Brother No problems noted. Sister No problems noted. 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 Sexual orientation: Straight/Heterosexual Gender identity: Female Cognitive needs: No Hearing needs: No Vision needs: No Review of Systems Const All systems reviewed & are unremarkable except as noted in HPI and below Physical Exam Vital Signs: Last Vital Signs Pulse 79 11/14/24 08:03 BP 122/80 11/14/24 08:03 Pulse Ox 98 11/14/24 08:03 Oxygen Delivery Method Room Air 11/14/24 08:03 Assessment & Plan Assessment & Plan (1) Contact dermatitis: Code(s): L25.9 - Unspecified contact dermatitis, unspecified cause Qualifiers: Contact dermatitis type: allergic Contact dermatitis trigger: unspecified trigger Qualified Code(s): L23.9 - Allergic contact dermatitis, unspecified cause Plan: The management of allergic dermatitis includes continuation with topical hydrocortisone to reduce itching. Methylprednisolone, an oral steroid, is prescribed with a six-day dosing schedule to control the inflammatory response. Hydroxyzine was considered but deferred due to its interaction potential with the patient?s ongoing citalopram medication regimen. Patients are counseled on cleaning all personal items such as linens and clothing thoroughly, and advised to avoid similar exposures in the future, such as the tanning bed usage which could be aggravating symptoms. The focus remains on alleviating symptoms while attempting to identify and eliminate any causal allergens. Patient was informed and verbally consented to the use of an ambient scribe for clinic note documentation during this visit. Medications: New methylprednisolone PO PER PKG DIR for 6 days 21 ea 0RF Coding Level of Care Code Est Pt Level 3 (19703) Diagnoses Allergic contact dermatitis, unspecified trigger L23.9 Contact dermatitis type: allergic Contact dermatitis trigger: unspecified trigger
[2024-11-14 08:03] VITALS: BP 122/80; PULSE 79; O2SAT 98
== END 2024-11-14 09:09 | disposition home or self-care (01) ==
PROVIDERS: PCP Internal Medicine; Visit Provider Physician Assistant
DX: L23.9 Allergic contact dermatitis, unspecified cause (principal)

== ENCOUNTER → 2024-11-14 08:00 | Outpatient (BNVA) | payer OTHER, SELFPAY | PROVIDERS: PCP Internal Medicine; Visit Provider Physician Assistant | DX: L23.9 Allergic contact dermatitis, unspecified cause (principal) | CPT/HCPCS: 99212 ==

== ENCOUNTER 2024-12-14 08:07 | Outpatient (AMB) | payer OTHER, SELFPAY ==
--- NOTE | 2024-12-14 08:12 | AM.OFFWIN_ITS ---
Intake Vital Signs 12/14/24 08:13 Weight 166 lb BP 122/80 Blood Pressure Location Lt brachial Position Sitting Pulse 93 Pulse Source Pulse Oximeter Pulse Oximetry (%) 100 Oxygen Delivery Method Room Air Intake Visit Reasons: EP RT arm rash Intake Note: Patient here for rash on right arm that started off with a small cat scratch and rash has spread to both arms now. Patient Tobacco Use Status: Never used Tobacco Allergies seasonal allergies/pollen Allergy (Unknown, Uncoded 12/14/24 08:18) Unknown Medication List - Last Reconciled 12/14/24 by Steph Treviño MD atorvastatin (Lipitor) 10 mg PO DAILY 90 days escitalopram oxalate (Lexapro) 10 mg PO DAILY 90 days Do you need a note to return to daycare/school/sports/work: Yes HPI EP RT arm rash HPI Details History - The patient is a 29-year-old female pr esenting with a rash. - Following a kitten scratch and applica tion of antibiotic ointment, the rash spread from the scratch site with associated itching and bumps. - Prior treatments include hydrocortison e cream without significant improvement and antihistamines providing partial relief. - The patient has a potential feline all ergy with skin manifestations. - She has a history of photosensitivity, with a previous rash associated with tanning bed use. - Her skin is highly sensitive, with his torical episodes of systemic rash reactions from certain materials like belts. Problem List - Allergic contact dermatitis - Possible feline allergy - History of photosensitivity - Highly sensitive skin Patient Instructions Take medication orally to resolve the rash Consider avoiding contact with the kitten Review of Systems - General: No fever no chills - Neurological: No headaches no dizziness - Ear nose throat: No sore throat no hearing difficulty no ear pain - Cardiovascular: No syncope, no chest pain, no palpitations - Gastrointestinal: No nausea vomiting or diarrhea - Endocrine: No polyuria polydipsia no heat intolerance - Genitourinary: No dysuria , no blood in urine Physical Exam General: No acute distress HEENT: Ears are itchy Neck: Supple Respiratory system: Able to talk in full sentences, no audible wheeze Gastrointestinal: No pain Extremities: Rash spreading to the side of the arm METABOLIC SPECIALIST: Alert awake oriented x3 motor sensory intact Skin: Rash present, papular vesicular only on forearms, rest of the body is without rash No signs of infection FOR[facility]LY [facility] Medical History Vasovagal syncope Anxiety Vasovagal reaction Migraine headache without aura Allergies Lipid disorder Surgical History History of tooth extraction History of tonsillectomy Family History Father No problems noted. Mother No problems noted. Maternal Grandmother No problems noted. Maternal Grandfather History of heart attack Paternal Grandfather No problems noted. Paternal Grandmother No problems noted. Brother No problems noted. Sister No problems noted. 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 Sexual orientation: Straight/Heterosexual Gender identity: Female Cognitive needs: No Hearing needs: No Vision needs: No Physical Exam Vital Signs: Last Vital Signs Pulse 93 12/14/24 08:13 BP 122/80 12/14/24 08:13 Pulse Ox 100 12/14/24 08:13 Oxygen Delivery Method Room Air 12/14/24 08:13 Assessment & Plan Assessment & Plan (1) Contact dermatitis: Code(s): L25.9 - Unspecified contact dermatitis, unspecified cause Qualifiers: Contact dermatitis type: allergic Contact dermatitis trigger: unspecified trigger Qualified Code(s): L23.9 - Allergic contact dermatitis, unspecified cause Plan History - The patient is a 29-year-old female presenting with a rash. - Following a kitten scratch and application of antibiotic ointment, the rash spread from the scratch site with associated itching and bumps. - Prior treatments include hydrocortisone cream without significant improvement and antihistamines providing partial relief. - The patient has a potential feline allergy with skin manifestations. - She has a history of photosensitivity, with a previous rash associated with tanning bed use. - Her skin is highly sensitive, with historical episodes of systemic rash reactions from certain materials like belts. Problem List - Allergic contact dermatitis - Possible feline allergy - History of photosensitivity - Highly sensitive skin Patient Instructions Take medication orally to resolve the rash Consider avoiding contact with the kitten Medications: New prednisone 20 mg PO DAILY 5 days 5 tabs 0RF Coding Level of Care Code Est Pt Level 3 (94202) Diagnoses Allergic contact dermatitis, unspecified trigger L23.9 Contact dermatitis type: allergic Contact dermatitis trigger: unspecified trigger
[2024-12-14 08:13] VITALS: BP 122/80; PULSE 93; O2SAT 100
== END 2024-12-14 08:40 | disposition home or self-care (01) ==
PROVIDERS: PCP Internal Medicine; Visit Provider Internal Medicine
DX: L23.9 Allergic contact dermatitis, unspecified cause (principal)

== ENCOUNTER → 2024-12-14 08:07 | Outpatient (BNVA) | payer OTHER, SELFPAY | PROVIDERS: PCP Internal Medicine; Visit Provider Internal Medicine | DX: L23.9 Allergic contact dermatitis, unspecified cause (principal) | CPT/HCPCS: 99212 ==

== ENCOUNTER 2025-06-09 14:06 | Outpatient (AMB) | payer OTHER, SELFPAY ==
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
[2025-06-09 14:10] VITALS: BP 132/72; PULSE 99; RESP 16; O2SAT 99; BMI 31.3
== END 2025-06-09 14:42 | disposition home or self-care (01) ==
LOC: HO.HMCC 14:07
PROVIDERS: PCP Internal Medicine; Visit Provider Internal Medicine
DX: R00.0 Tachycardia, unspecified (principal); Z91.09 Other allergy status, other than to drugs and biological substances; F42.9 Obsessive-compulsive disorder, unspecified; F41.1 Generalized anxiety disorder; E78.9 Disorder of lipoprotein metabolism, unspecified; J30.89 Other allergic rhinitis

== ENCOUNTER → 2025-06-09 14:06 | Outpatient (BNVA) | payer OTHER, SELFPAY | PROVIDERS: PCP Internal Medicine; Visit Provider Internal Medicine | DX: F41.1 Generalized anxiety disorder (principal); R00.0 Tachycardia, unspecified; F42.9 Obsessive-compulsive disorder, unspecified; J30.89 Other allergic rhinitis; Z91.09 Other allergy status, other than to drugs and biological substances; Z79.899 Other long term (current) drug therapy | CPT/HCPCS: 93005; 96127; 99212 ==

== ENCOUNTER 2025-06-15 08:18 | Outpatient (REF) | payer OTHER, SELFPAY ==
[2025-06-15 15:57] LABS: Chlamydia pneumoniae PCR Not Detected (Not Detect.); Coronavirus 229E PCR Not Detected (Not Detect.); Coronavirus HKU1 PCR Not Detected (Not Detect.); Coronavirus NL63 PCR Not Detected (Not Detect.); Coronavirus OC43 PCR Not Detected (Not Detect.); RSV PCR Not Detected (Not Detect.); Rhino/Enterovirus PCR Not Detected (Not Detect.); SARS-CoV-2 PCR Not Detected (Not Detect.)
[2025-06-15 16:01] LABS: Influenza A H1 PCR Not Detected (Not Detect.); Influenza A H1-2009 PCR Not Detected (Not Detect.); Influenza A H3 PCR Not Detected (Not Detect.)
== END 2025-06-15 08:19 | disposition home or self-care (01) ==
LOC: HO.LAB 08:18
PROVIDERS: PCP Internal Medicine; Visit Provider Nurse Practitioner Family
DX: R09.81 Nasal congestion (principal); T48.5X5A Adverse effect of other anti-common-cold drugs, initial encounter; J02.0 Streptococcal pharyngitis; Z13.89 Encounter for screening for other disorder
CPT/HCPCS: 87633; 87880; 99212

== ENCOUNTER 2025-06-15 08:18 | Outpatient (AMB) | payer OTHER, SELFPAY ==
[2025-06-15 08:19] VITALS: BP 128/78; PULSE 96; TEMP 36.6; O2SAT 98; BMI 31.3
--- NOTE | 2025-06-15 08:19 | AM.OFFWIN_ITS ---
Intake Vital Signs 06/15/25 08:19 Height 5 ft 2 in Weight 171 lb BMI 31.3 BP 128/78 Blood Pressure Location Lt brachial Position Sitting Pulse 96 Pulse Source Pulse Oximeter Temp 97.9 F Temp Source Oral Pulse Oximetry (%) 98 Intake Visit Reasons: EP Cold symptoms for a week Patient Tobacco Use Status: Never used Tobacco Allergies seasonal allergies/pollen Allergy (Unknown, Uncoded 06/15/25 08:19) Unknown Do you need a note to return to daycare/school/sports/work: No HPI HPI Comments History of Present Illness Details 30 y/o Female patient who presents to [facility] walk in clinic with c/o Severe nasal congestion for over a week. Reports inability to breath through her nose. C/o Sore throat and difficulty swallowing. She does suffer from Seasonal allergies and she has tried multiple OTC medicines with no much relief. She was prescribed Azelastine-Fluticasone at the last visit with PCP - but it was ineffective plus it was $50 co-payment. Reports using Afrin nasal spray - frequently than the recommended dose. [facility] Medical History (Updated 06/15/25 @ 08:47 by Jordyn Jaramillo NP) Acute respiratory disease Nasal congestion due to prolonged use of decongestants Vasovagal syncope Anxiety Vasovagal reaction Migraine headache without aura Allergies Lipid disorder Surgical History History of tooth extraction History of tonsillectomy Family History Father No problems noted. Mother No problems noted. Maternal Grandmother No problems noted. Maternal Grandfather History of heart attack Paternal Grandfather No problems noted. Paternal Grandmother No problems noted. Brother No problems noted. Sister No problems noted. 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 Sexual orientation: Straight/Heterosexual Gender identity: Female Cognitive needs: No Hearing needs: No Vision needs: No Review of Systems Const All systems reviewed & are unremarkable except as noted in HPI and below Physical Exam Vital Signs: Last Vital Signs Temp 97.9 F 06/15/25 08:19 Pulse 96 06/15/25 08:19 BP 128/78 06/15/25 08:19 Pulse Ox 98 06/15/25 08:19 BMI result Body Mass Index 31.3 Const General: no acute distress Nutritional Appearance: well nourished Orientation/consciousness: patient oriented x3 HEENT Head: Yes normocephalic Ears: external ears normal and TM abnormal bulging bilateral and with fluid behind the TM bilateral General nose exam: Abnormal mucous membranes and turbinates present erythematous Face and sinus: Yes sinus tenderness Mouth: moist mucous membranes Throat: Yes uvula midline Resp Effort & Inspection: normal respiratory effort and able to speak in complete sentences Auscultation: clear to auscultation bilaterally, no crackles, no rales, no rhonchi and no wheezes Cardio Heart sounds: S1 normal heart sound present and S2 normal heart sound present Neuro General: patient oriented x3 Psych Speech and movement: Normal speech and movement present Results AMB Rapid Strep AMB Rapid Strep Negative Last Edit by Richar Bruce CMA on 06/15/25 09 :27 Results Reviewed Results Reviewed: Laboratory Last Values Strep Scn Rapid Clinic Negative 06/15/25 09:26 Assessment & Plan Assessment & Plan (1) Nasal congestion due to prolonged use of decongestants: Code(s): R09.81 - Nasal congestion; T48.5X5A - Adverse effect of other monu-kkkajh-vlhd drugs, initial encounter Plan: Advised that Over use of Afrin could cause Rebound Nasal congestion. Advised to take Zyrtec BID for 7 days. Ordered small dose of Prednisone for few days. Rapid Strep Negative. Ordered Resp panel. Orders: Orders Resp Pathogen Panel - [facility] [place] J06.9 - Acute upper respiratory infection, unspecified AMB Rapid Strep Screen Today Z13.9 - Encounter for screening, unspecified Medications: New prednisone 20 mg PO DAILY 7 tabs 0RF 7 days J06.9 - Acute upper respiratory infection, unspecified cetirizine (Zyrtec) 10 mg PO BID 20 tabs 0RF R09.81 - Nasal congestion, T48.5X5A - Adverse effect of other vixb-ubfpuy-dqgl drugs, initial encounter Coding Level of Care Code Est Pt Level 4 (09300) Diagnoses Nasal congestion due to prolonged use of decongestants R09.81; T48.5X5A Time Spent (min) 20
== END 2025-06-15 09:05 | disposition home or self-care (01) ==
PROVIDERS: PCP Internal Medicine; Visit Provider Nurse Practitioner Family
DX: R09.81 Nasal congestion (principal); T48.5X5A Adverse effect of other anti-common-cold drugs, initial encounter; Z13.9 Encounter for screening, unspecified

== ENCOUNTER 2025-06-29 08:03 | Outpatient (AMB) | payer OTHER, SELFPAY ==
[2025-06-29 08:07] VITALS: BP 114/80; PULSE 74; RESP 15; O2SAT 96; BMI 30.7
--- NOTE | 2025-06-29 08:07 | AM.OFFWIN_ITS ---
Intake Vital Signs 06/29/25 08:07 Height 5 ft 2 in Weight 168 lb BMI 30.7 BP 114/80 Blood Pressure Location Rt brachial Position Sitting Respiration 15 Pulse 74 Pulse Source Pulse Oximeter Pulse Oximetry (%) 96 Oxygen Delivery Method Room Air Intake Visit Reasons: EP Rash on LT arm Intake Note: Pt is here today c/o rash Lt side of upper torso started two days ago Patient Tobacco Use Status: Never used Tobacco Allergies seasonal allergies/pollen Allergy (Unknown, Uncoded 06/15/25 08:19) Unknown HPI HPI Comments History of Present Illness Details History - The patient is a 30-year-old female pr esenting with a pruritic rash. - The rash began two days ago and is lucía racterized by itchiness and a bumpy texture. - The patient has not changed any clothi ng, detergent, or lotion recently. - She has a history of sensitive skin an d experiences seasonal allergies. - The patient uses cetirizine daily for allergies and has tried cortisone cream for the rash without relief. - She has no associated joint pain, feve r, chills, CP, SOB, or wheezing. - She denies new foods, medications, per fumes, pets, or travel. Physical Exam General: Cooperative, healthy appearing, comfortable, no acute distress and well developed Orientation: Patient oriented x3 Limitations: No limitations Mouth: normal, moist oral mucosa Neck: Normal visual inspection and Yes full ROM Respiratory: Normal respiratory effort and able to speak in complete sentences. Clear to auscultation bilaterally. No w/r/r noted. Cardiovascular: RRR, no m/r/g noted. Normal S1 and S2 Skin: Diffuse maculopapular rash noted on the chest wall, shoulders, and arms. Dry, non-tender, blanchable, and erythematous. Patient was informed and verbally consented to the use of an ambient scribe for clinic note documentation during this visit [facility] Medical History (Updated 06/15/25 @ 08:47 by Jordyn Jaramillo NP) Acute respiratory disease Nasal congestion due to prolonged use of decongestants Vasovagal syncope Anxiety Vasovagal reaction Migraine headache without aura Allergies Lipid disorder Surgical History History of tooth extraction History of tonsillectomy Family History Father No problems noted. Mother No problems noted. Maternal Grandmother No problems noted. Maternal Grandfather History of heart attack Paternal Grandfather No problems noted. Paternal Grandmother No problems noted. Brother No problems noted. Sister No problems noted. 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 Sexual orientation: Straight/Heterosexual Gender identity: Female Cognitive needs: No Hearing needs: No Vision needs: No Review of Systems Const All systems reviewed & are unremarkable except as noted in HPI and below Physical Exam Vital Signs: Last Vital Signs Pulse 74 06/29/25 08:07 Resp 15 06/29/25 08:07 BP 114/80 06/29/25 08:07 Pulse Ox 96 06/29/25 08:07 Oxygen Delivery Method Room Air 06/29/25 08:07 BMI result Body Mass Index 30.7 Assessment & Plan Assessment & Plan (1) Rash: Code(s): R21 - Rash and other nonspecific skin eruption Plan Most likely contact dermatitis vs allergic reaction Plan - Initiate a course of prednisone to address the rash and associated itching. - Prescribe Pepcid as an adjunctive histamine fannie. - Continue cetirizine for allergy management. - Advise the use of topical cortisone cream for symptomatic relief. Medications: New prednisone 40 mg (2 x 20 mg) PO DAILY 10 tabs 0RF 5 days famotidine (Pepcid) 20 mg PO DAILY 30 tabs 0RF Coding Level of Care Code Est Pt Level 3 (51489) Diagnoses Rash R21
== END 2025-06-29 08:21 | disposition home or self-care (01) ==
PROVIDERS: PCP Internal Medicine; Visit Provider Physician Assistant Medical
DX: R21 Rash and other nonspecific skin eruption (principal)

== ENCOUNTER → 2025-06-29 08:03 | Outpatient (BNVA) | payer OTHER, SELFPAY | PROVIDERS: PCP Internal Medicine; Visit Provider Physician Assistant Medical | DX: R21 Rash and other nonspecific skin eruption (principal) | CPT/HCPCS: 99212 ==

== ENCOUNTER 2025-07-24 08:16 | Outpatient (AMB) | payer OTHER, SELFPAY ==
--- NOTE | 2025-07-24 09:09 | AM.OFFWIN_ITS ---
Intake Vital Signs 07/24/25 09:10 Height 5 ft 2 in Weight 173 lb BMI 31.6 BP 118/72 Blood Pressure Location Rt brachial Position Sitting Pulse 88 Pulse Source Pulse Oximeter Pulse Oximetry (%) 98 Oxygen Delivery Method Room Air Intake Visit Reasons: EP-b/l arm rash Intake Note: Patient presents c/o rash all over x2 weeks. Patient seen on 06/29 for the same thing & prescribed prednisone which she completed but the rash has returned. Patient Tobacco Use Status: Never used Tobacco Allergies seasonal allergies/pollen Allergy (Unknown, Uncoded 07/24/25 09:12) Unknown Medication List - Last Reconciled 07/24/25 by Jordyn Jaramillo NP atorvastatin (Lipitor) 10 mg PO DAILY 90 days cetirizine (Zyrtec) 10 mg PO BID escitalopram oxalate 20 mg PO DAILY 90 days famotidine (Pepcid) 20 mg PO DAILY montelukast 10 mg PO DAILY prednisone 20 mg PO DAILY Do you need a note to return to daycare/school/sports/work: Yes HPI HPI Comments History of Present Illness Details 30 y/o female presents to the walk-in [facility] with c/o a diffuse pruritic rash covering her entire body. She was evaluated here on 06/29 for a similar episode and completed a 7-day course of Prednisone with partial relief. Reports severe itching, especially at night, causing difficulty sleeping. She has been taking Cetirizine with minimal benefit. Denies facial swelling, shortness of breath, wheezing, cough, or chest tightness. No new foods, medications, detergents, or environmental exposures reported. [facility] Medical History (Updated 06/15/25 @ 08:47 by Jordyn Jaramillo NP) Acute respiratory disease Nasal congestion due to prolonged use of decongestants Vasovagal syncope Anxiety Vasovagal reaction Migraine headache without aura Allergies Lipid disorder Surgical History History of tooth extraction History of tonsillectomy Family History Father No problems noted. Mother No problems noted. Maternal Grandmother No problems noted. Maternal Grandfather History of heart attack Paternal Grandfather No problems noted. Paternal Grandmother No problems noted. Brother No problems noted. Sister No problems noted. 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 Sexual orientation: Straight/Heterosexual Gender identity: Female Cognitive needs: No Hearing needs: No Vision needs: No Review of Systems Const All systems reviewed & are unremarkable except as noted in HPI and below Physical Exam Vital Signs: Last Vital Signs Pulse 88 07/24/25 09:10 BP 118/72 07/24/25 09:10 Pulse Ox 98 07/24/25 09:10 Oxygen Delivery Method Room Air 07/24/25 09:10 BMI result Body Mass Index 31.6 Const General: comfortable Nutritional Appearance: well nourished Orientation/consciousness: patient oriented x3 HEENT Head: Yes normocephalic Face and sinus: Yes normal facial exam Resp Effort & Inspection: normal respiratory effort Cardio Rate: regular rate Skin Other: Diffuse erythematous, blanching maculopapular rash involving trunk, extremities, and back. No vesicles, pustules, target lesions, drainage, or signs of secondary infection. No Angioedema noted. Neuro General: patient oriented x3 Assessment & Plan Assessment & Plan (1) Dermatitis: Code(s): L30.9 - Dermatitis, unspecified Plan: Generalized Pruritic Rash ? likely recurrent urticaria Minimal response to antihistamines; prior partial response to oral steroids. No signs of anaphylaxis or respiratory compromise. Prednisone 20 mg for 10 days. Added Hydroxyzine at night for itch/sleep support. Continue Cetirizine BID. Cool compresses, fragrance-free soaps/lotion, avoid hot showers. Avoid scratching; recommend loose clothing. Medications: New prednisone 20 mg PO DAILY 10 tabs 0RF L30.9 - Dermatitis, unspecified hydroxyzine HCl 25 mg PO TID 20 tabs 0RF itching L30.9 - Dermatitis, unspecified Refilled cetirizine (Zyrtec) 10 mg PO BID 30 tabs 0RF L30.9 - Dermatitis, unspecified Coding Level of Care Code Est Pt Level 4 (43748) Diagnoses Dermatitis L30.9 Time Spent (min) 20
[2025-07-24 09:10] VITALS: BP 118/72; PULSE 88; O2SAT 98; BMI 31.6
== END 2025-07-24 09:59 | disposition home or self-care (01) ==
PROVIDERS: PCP Internal Medicine; Visit Provider Nurse Practitioner Family
DX: L30.9 Dermatitis, unspecified (principal)

== ENCOUNTER → 2025-07-24 08:16 | Outpatient (BNVA) | payer OTHER, SELFPAY | PROVIDERS: PCP Internal Medicine; Visit Provider Nurse Practitioner Family | DX: L30.9 Dermatitis, unspecified (principal) | CPT/HCPCS: 99212 ==